=== PATIENT | male | born 1980 | race African-American/Black ===

== ENCOUNTER 2021-11-28 12:01 | Inpatient (IN) | payer SELFPAY ==
[~2021-11-28] VITALS: Ht 170.2 cm; Wt 81.6 kg
[2021-11-28] VITALS (33 sets, daily range): BP systolic 86–143; BP diastolic 59–97
[~2021-11-28 12:01] MED LIST: AMIODARONE HCL 50MG/ML 3ML VIAL IV ONE; CALCIUM CHLORIDE 1GM/10ML SYR IV ONE; EPINEPHRINE 0.1MG/ML (1:10,000) 10ML SYR ONE; SODIUM BICARBONATE 8.4% 1 MEQ/ML 50ML SYR IV ONE
[2021-11-28] MEDS ORDERED: AZITHROMYCIN 500MG/250ML 250 ML IV ONE (12:15)
[2021-11-28] MEDS ORDERED: SODIUM CHLORIDE 0.9% 1,000 ML IV ONE (12:15)
[2021-11-28] MEDS ORDERED: CEFTRIAXONE 2 G PREMIX 50 ML IV ONE (12:15)
[2021-11-28] MEDS ORDERED: AMIODARONE HCL 900 MG in DEXT 5% WATER 500 ML IV PRN (12:15)
[2021-11-28] MEDS ORDERED: CALCIUM CHLORIDE 1GM/10ML SYR IV ONE (12:30)
[2021-11-28] MEDS ORDERED: SODIUM BICARBONATE 8.4% 1 MEQ/ML 50ML SYR IV ONE (12:30)
[2021-11-28] MEDS ORDERED: EPINEPHRINE 0.1MG/ML (1:10,000) 10ML SYR IV ONE ×2 (12:30)
[2021-11-28] MEDS ORDERED: AMIODARONE HCL 50MG/ML 3ML VIAL IV ONE (12:30)
[2021-11-28] MEDS ORDERED: ATROPINE SULFATE 1MG/10ML SYR IV ONE (12:30)
[2021-11-28] MEDS ORDERED: FENTANYL CITRATE 2,500 MCG in SODIUM CHLORIDE 0.9% 200 ML IV PRN (12:30)
[2021-11-28] MEDS ORDERED: MIDAZOLAM 100MG/100ML PREMIX IV PRN (12:30)
[2021-11-28] MEDS ORDERED: NALOXONE HCL 0.4 MG/ML 1ML VIAL IV ONE (12:30)
[2021-11-28] MEDS ORDERED: FENTANYL CITRATE/PF 1,000 MCG in SODIUM CHLORIDE 0.9% 80 ML IV PRN (12:45)
[2021-11-28] MEDS ORDERED: DEXT 5%/0.45% NACL 1000ML 1,000 ML IV SCH (12:45)
[2021-11-28] MEDS ORDERED: BUSPIRONE HCL 10MG TABLET NG PRN (12:45)
[2021-11-28] MEDS ORDERED: NOREPINEPHRINE 8 MG in DEXT 5% WATER 242 ML IV PRN ×2 (12:45→13:00)
[2021-11-28 12:54] LABS: BG BASE EXCESS -11.6 mmol/L (-2.0-2.0); BG CARBOXYHEMOGLOBIN 0.6 % (0.5-1.5); BG DEOXYHEMOGLOBIN 1.6 % (0.0-5.0); BG FRACTION INSPIRED OXYGEN 100; BG HCO3 ACT 18.4 mmol/L (22.0-26.0); BG METHEMOGLOBIN 0.1 % (0.0-1.5); BG OXYGEN SATURATION 98.4 % (92.0-98.5); BG OXYHEMOGLOBIN 97.7 % (94.0-97.0); BG PCO2 60.4 mmHg (35.0-45.0); BG PH 7.102 (7.350-7.450); BG PO2 381.9 mmHg (75.0-100.0); BG SAMPLE SITE LEFT RADIAL; BG TOTAL HEMOGLOBIN 12.9 g/dL (12.0-18.0); BG VENT MODE VENT - AC
[2021-11-28 12:55] LABS: CHLORIDE 105 mEq/L (98-107)
[2021-11-28 13:00] LABS: AMYLASE 76 IU/L (25-115); ETHANOL BLOOD < 10 mg/dL
[2021-11-28] MEDS ORDERED: PHENYLEPHRINE 50 MG in DEXT 5% WATER 245 ML IV PRN (13:00)
[2021-11-28] MEDS ORDERED: NOREPINEPHRINE 8MG/250ML PMX 250 ML IV PRN ×2 (13:00→13:30)
[2021-11-28 13:02] LABS: BASOPHILS % 0.5 % (0.0-2.0); EOSINOPHILS % 1.3 % (0.0-5.0); HEMATOCRIT. 40.8 % (42.0-52.0); HEMOGLOBIN. 12.7 g/dL (14.0-18.0); LYMPHOCYTES % 45.7 % (20.0-50.0); MEAN CORPUSCULAR HEMOGLOBIN 26.9 pg (28.0-32.0); MEAN CORPUSCULAR VOLUME 86.3 fL (80.0-94.0); MEAN PLATELET VOLUME 7.7 fl (7.4-10.4); MONOCYTES % 2.8 % (2.0-8.0); NEUTROPHILS % 49.7 % (40.0-76.0); PLATELET 440 x1000/uL (130-400); RED BLOOD CELL COUNT 4.72 mill/uL (4.7-6.1); RED CELL DISTRIBUTION WIDTH 14.1 % (11.6-14.6)
[2021-11-28 13:03] LABS: LDL CHOLESTEROL 78 mg/dL (5-100)
[2021-11-28 13:04] LABS: HDL CHOLESTEROL 48 mg/dL (40-59)
[2021-11-28] MEDS: FENTANYL CITRATE 2,500 MCG in SODIUM CHLORIDE 0.9% 200 ML IV PRN ×2 (13:04→21:56)
[2021-11-28] MEDS ORDERED: PIPERACILLIN/TAZ 3.375G PREMIX 50 ML IV NR (13:04)
[2021-11-28 13:11] LABS: *AMPHETAMINES SCREEN URINE PRESUMTIVE POSITIVE (NEGATIVE); *BARBITURATES SCREEN URINE NEGATIVE (NEGATIVE); *BENZODIAZEPINES SCREEN URINE NEGATIVE (NEGATIVE); *COCAINE SCREEN URINE NEGATIVE (NEGATIVE); METHADONE URINE SCREEN NEGATIVE (NEGATIVE); OPIATES URINE SCREEN NEGATIVE (NEGATIVE); PHENCYCLIDINE URINE SCREEN NEGATIVE (NEGATIVE)
[2021-11-28 13:13] LABS: CANNABINOID URINE SCREEN PRESUMTIVE POSITIVE (NEGATIVE)
[2021-11-28 13:26] LABS: CLARITY URINE CLOUDY (CLEAR); COLOR URINE YELLOW (YELLOW); KETONES URINE NEGATIVE (NEGATIVE); LEUKOCYTE ESTERASE URINE NEGATIVE (NEGATIVE); NITRITE URINE NEGATIVE (NEGATIVE); OCCULT BLOOD URINE TRACE (NEGATIVE); PH URINE 6.5 (4.5-8.0); PROTEIN URINE 2+ (NEGATIVE); SPECIFIC GRAVITY URINE 1.025 (1.005-1.030)
[2021-11-28] MEDS ORDERED: PIPERACILLIN/TAZOBACTAM 3.375 G in DEXTROSE 5% WATER 50 ML IV SCH ×2 (13:45→22:00)
[2021-11-28] MEDS ORDERED: ONDANSETRON HCL 4MG/2ML INJ IV PRN (13:45)
[2021-11-28 13:54] LABS: PARTIAL THROMBOPLASTIN TIME 22.8 sec (23.4-31.0); PROTHROMBIN TIME 10.5 sec (9.6-11.0)
[2021-11-28] MEDS ORDERED: DEXTROSE 50% WATER 50ML SYRINGE IV PRN (14:45)
[2021-11-28] MEDS: ENOXAPARIN 40MG/0.4ML SYR SUBCUT SCH (15:47)
[2021-11-28] MEDS: PANTOPRAZOLE SODIUM 40 MG/VIAL IV SCH (15:47)
[2021-11-28] MEDS: DEXT 5%/0.45% NACL 1000ML 1,000 ML IV SCH (15:48)
[2021-11-28] MEDS: BLOOD SUGAR DIAGNOSTIC STRIP TEST SCH ×8 (16:00→23:00)
[2021-11-28] MEDS ORDERED: INSULIN REGULAR (DRIP) 100 UNITS in SODIUM CHLORIDE 0.9% 100 ML IV SCH (16:00)
[2021-11-28] MEDS ORDERED: FENTANYL CITRATE/PF 2,500 MCG in SODIUM CHLORIDE 0.9% 200 ML IV PRN (16:15)
[2021-11-28] MEDS ORDERED: NOREPINEPHRINE 32 MG in DEXT 5% WATER 218 ML IV PRN (16:15)
[2021-11-28] MEDS: DEXTROSE 50% WATER 50ML SYRINGE IV PRN (16:29)
[2021-11-28 16:47] LABS: BG BASE EXCESS -6.4 mmol/L (-2.0-2.0); BG CARBOXYHEMOGLOBIN 0.9 % (0.5-1.5); BG DEOXYHEMOGLOBIN 9.6 % (0.0-5.0); BG FRACTION INSPIRED OXYGEN 100; BG METHEMOGLOBIN 0.3 % (0.0-1.5); BG OXYGEN SATURATION 90.3 % (92.0-98.5); BG OXYHEMOGLOBIN 89.2 % (94.0-97.0); BG PCO2 62.8 mmHg (35.0-45.0); BG PH 7.181 (7.350-7.450); BG PO2 70.2 mmHg (75.0-100.0); BG SAMPLE SITE RIGHT RADIAL; BG TOTAL RESPIRATORY RATE 25 b/min; BG VENT MODE VENT - AC
[2021-11-28] MEDS ORDERED: IPRATROPIUM/ALBUTEROL 0.5-3(2.5)MG/3ML NEB HHN PRN (17:15)
[2021-11-28] MEDS: IPRATROPIUM/ALBUTEROL 0.5-3(2.5)MG/3ML NEB HHN SCH (20:44)
[2021-11-28 21:31] LABS: CHLORIDE 111 mEq/L (98-107)
[2021-11-28 21:36] LABS: PHOSPHORUS 5.3 mg/dL (2.5-4.9)
[2021-11-28 21:39] LABS: CREATINE KINASE 349 IU/L (39-308)
[2021-11-28] MEDS: MIDAZOLAM HCL 100 MG in DEXT 5% WATER 80 ML IV PRN (21:49)
[2021-11-28 22:39] LABS: BASOPHILS % 0.2 % (0.0-2.0); EOSINOPHILS % 0.1 % (0.0-5.0); HEMATOCRIT. 42.3 % (42.0-52.0); HEMOGLOBIN. 14.1 g/dL (14.0-18.0); LYMPHOCYTES % 9.1 % (20.0-50.0); MEAN CORPUSCULAR HEMOGLOBIN 27.5 pg (28.0-32.0); MEAN CORPUSCULAR VOLUME 82.7 fL (80.0-94.0); MEAN PLATELET VOLUME 7.1 fl (7.4-10.4); MONOCYTES % 2.4 % (2.0-8.0); NEUTROPHILS % 88.2 % (40.0-76.0); PLATELET 298 x1000/uL (130-400); RED BLOOD CELL COUNT 5.12 mill/uL (4.7-6.1); RED CELL DISTRIBUTION WIDTH 13.8 % (11.6-14.6)
[2021-11-28 22:56] LABS: CREATINE KINASE MB FRACTION 12.2 ng/mL (0.5-3.6)
[2021-11-29] VITALS (97 sets, daily range): BP systolic 82–136; BP diastolic 49–80
[2021-11-29] MEDS: IPRATROPIUM/ALBUTEROL 0.5-3(2.5)MG/3ML NEB HHN SCH ×6 (00:24→20:30)
[2021-11-29] MEDS: PIPERACILLIN/TAZOBACTAM 3.375G in DEXT 5% WATER 50ML IV SCH ×4 (01:22→22:14)
[2021-11-29] MEDS: BLOOD SUGAR DIAGNOSTIC STRIP TEST SCH ×24 (01:23→23:44)
[2021-11-29] MEDS: DEXT 5%/0.45% NACL 1000ML 1,000 ML IV SCH (05:07)
[2021-11-29] MEDS: MIDAZOLAM HCL 100 MG in DEXT 5% WATER 80 ML IV PRN ×3 (05:41→17:58)
[2021-11-29] MEDS: FENTANYL CITRATE 2,500 MCG in SODIUM CHLORIDE 0.9% 200 ML IV PRN ×3 (05:44→16:05)
[2021-11-29 06:12] LABS: CHLORIDE 112 mEq/L (98-107)
[2021-11-29 06:16] LABS: PHOSPHORUS 4.9 mg/dL (2.5-4.9)
[2021-11-29 06:19] LABS: CREATINE KINASE 463 IU/L (39-308)
[2021-11-29 06:21] LABS: CREATINE KINASE MB FRACTION 22.4 ng/mL (0.5-3.6); HEMATOCRIT. 43.7 % (42.0-52.0); HEMOGLOBIN. 14.1 g/dL (14.0-18.0); MEAN CORPUSCULAR HEMOGLOBIN 26.8 pg (28.0-32.0); MEAN PLATELET VOLUME 7.5 fl (7.4-10.4); PLATELET 289 x1000/uL (130-400); RED BLOOD CELL COUNT 5.26 mill/uL (4.7-6.1); RED CELL DISTRIBUTION WIDTH 14.2 % (11.6-14.6)
[2021-11-29] MEDS ORDERED: LIDOCAINE HCL 1% 20ML VIAL (Pyxis) INJ ONE (08:49)
[2021-11-29] MEDS ORDERED: PANTOPRAZOLE SODIUM 40 MG/VIAL IV SCH (09:00)
[2021-11-29] MEDS: PANTOPRAZOLE SODIUM 40 MG/VIAL IV SCH (09:02)
[2021-11-29 09:18] LABS: BG BASE EXCESS -8.6 mmol/L (-2.0-2.0); BG CARBOXYHEMOGLOBIN 0.7 % (0.5-1.5); BG DEOXYHEMOGLOBIN 25.8 % (0.0-5.0); BG FRACTION INSPIRED OXYGEN 100; BG HCO3 ACT 21.9 mmol/L (22.0-26.0); BG METHEMOGLOBIN 0.3 % (0.0-1.5); BG OXYGEN SATURATION 73.9 % (92.0-98.5); BG OXYHEMOGLOBIN 73.2 % (94.0-97.0); BG PH 7.125 (7.350-7.450); BG PO2 46.1 mmHg (75.0-100.0); BG SAMPLE SITE RIGHT RADIAL; BG TOTAL HEMOGLOBIN 14.4 g/dL (12.0-18.0); BG VENT MODE VENT - AC/VC
[2021-11-29] MEDS: DEXT 5%/0.9% NACL 1,000 ML IV SCH ×2 (09:34→18:32)
[2021-11-29 09:36] LABS: BG BASE EXCESS -6.9 mmol/L (-2.0-2.0); BG CARBOXYHEMOGLOBIN 0.3 % (0.5-1.5); BG DEOXYHEMOGLOBIN 1.3 % (0.0-5.0); BG HCO3 ACT 21.7 mmol/L (22.0-26.0); BG METHEMOGLOBIN 0.3 % (0.0-1.5); BG OXYGEN SATURATION 98.7 % (92.0-98.5); BG OXYHEMOGLOBIN 98.1 % (94.0-97.0); BG PCO2 56.4 mmHg (35.0-45.0); BG PH 7.203 (7.350-7.450); BG PO2 363.3 mmHg (75.0-100.0); BG SAMPLE SITE RIGHT FEMORAL; BG TOTAL HEMOGLOBIN 13.7 g/dL (12.0-18.0); BG VENT MODE VENT - AC
[2021-11-29] MEDS: ENOXAPARIN 40MG/0.4ML SYR SUBCUT SCH (13:05)
[2021-11-29 14:01] LABS: PARTIAL THROMBOPLASTIN TIME 31.3 sec (23.4-31.0); PROTHROMBIN TIME 10.8 sec (9.6-11.0)
[2021-11-29 14:30] LABS: PLATELET ESTIMATE NORMAL
[2021-11-29 14:34] LABS: CHLORIDE 111 mEq/L (98-107)
[2021-11-29 14:39] LABS: PHOSPHORUS 4.5 mg/dL (2.5-4.9)
[2021-11-29 14:48] LABS: CREATINE KINASE MB FRACTION 28.8 ng/mL (0.5-3.6)
[2021-11-29 15:16] LABS: BG CARBOXYHEMOGLOBIN 0.3 % (0.5-1.5); BG DEOXYHEMOGLOBIN 2.4 % (0.0-5.0); BG HCO3 ACT 22.5 mmol/L (22.0-26.0); BG METHEMOGLOBIN 0.3 % (0.0-1.5); BG OXYGEN SATURATION 97.6 % (92.0-98.5); BG PCO2 57.5 mmHg (35.0-45.0); BG PH 7.211 (7.350-7.450); BG PO2 134.3 mmHg (75.0-100.0); BG SAMPLE SITE RIGHT RADIAL; BG TOTAL HEMOGLOBIN 13.5 g/dL (12.0-18.0); BG VENT MODE VENT - AC
[2021-11-29] MEDS ORDERED: NOREPINEPHRINE 8MG/250ML PMX 250 ML IV PRN (19:45)
[2021-11-29] MEDS ORDERED: NOREPINEPHRINE 8 MG in DEXT 5% WATER 242 ML IV PRN (20:00)
[2021-11-29] MEDS ORDERED: NOREPINEPHRINE 8 MG in DEXTROSE 5% WATER 250 ML IV PRN (20:15)
[2021-11-29 21:49] LABS: BASOPHILS % 0.2 % (0.0-2.0); EOSINOPHILS % 0.2 % (0.0-5.0); HEMATOCRIT. 40.7 % (42.0-52.0); HEMOGLOBIN. 13.3 g/dL (14.0-18.0); LYMPHOCYTES % 10.4 % (20.0-50.0); MEAN CORPUSCULAR VOLUME 82.5 fL (80.0-94.0); MEAN PLATELET VOLUME 7.6 fl (7.4-10.4); MONOCYTES % 4.1 % (2.0-8.0); NEUTROPHILS % 85.1 % (40.0-76.0); PLATELET 270 x1000/uL (130-400); RED BLOOD CELL COUNT 4.93 mill/uL (4.7-6.1); RED CELL DISTRIBUTION WIDTH 14.1 % (11.6-14.6)
[2021-11-29 21:57] LABS: INR 1.1; PROTHROMBIN TIME 11.4 sec (9.6-11.0)
[2021-11-29 22:06] LABS: CHLORIDE 109 mEq/L (98-107)
[2021-11-30] VITALS (95 sets, daily range): BP systolic 89–143; BP diastolic 49–84
[2021-11-30] MEDS: BLOOD SUGAR DIAGNOSTIC STRIP TEST SCH ×18 (00:07→20:00)
[2021-11-30] MEDS: FENTANYL CITRATE 2,500 MCG in SODIUM CHLORIDE 0.9% 200 ML IV PRN ×3 (00:09→18:48)
[2021-11-30] MEDS: IPRATROPIUM/ALBUTEROL 0.5-3(2.5)MG/3ML NEB HHN SCH ×6 (00:48→20:14)
[2021-11-30 01:10] LABS: BASOPHILS % 0.3 % (0.0-2.0); EOSINOPHILS % 0.4 % (0.0-5.0); HEMATOCRIT. 40.3 % (42.0-52.0); HEMOGLOBIN. 13.1 g/dL (14.0-18.0); LYMPHOCYTES % 7.3 % (20.0-50.0); MEAN CORPUSCULAR VOLUME 82.8 fL (80.0-94.0); MEAN PLATELET VOLUME 7.7 fl (7.4-10.4); MONOCYTES % 4.5 % (2.0-8.0); NEUTROPHILS % 87.5 % (40.0-76.0); PLATELET 248 x1000/uL (130-400); RED BLOOD CELL COUNT 4.87 mill/uL (4.7-6.1); RED CELL DISTRIBUTION WIDTH 14.1 % (11.6-14.6)
[2021-11-30 01:36] LABS: CHLORIDE 112 mEq/L (98-107)
[2021-11-30 02:07] LABS: INR 1.1; PARTIAL THROMBOPLASTIN TIME 35.2 sec (23.4-31.0); PROTHROMBIN TIME 11.7 sec (9.6-11.0)
[2021-11-30] MEDS: MIDAZOLAM HCL 100 MG in DEXT 5% WATER 80 ML IV PRN (03:07)
[2021-11-30] MEDS: DEXT 5%/0.9% NACL 1,000 ML IV SCH ×2 (05:26→15:19)
[2021-11-30 06:00] LABS: BASOPHILS % 0.3 % (0.0-2.0); EOSINOPHILS % 0.5 % (0.0-5.0); HEMATOCRIT. 39.8 % (42.0-52.0); HEMOGLOBIN. 13.2 g/dL (14.0-18.0); LYMPHOCYTES % 7.6 % (20.0-50.0); MEAN CORPUSCULAR HEMOGLOBIN 27.3 pg (28.0-32.0); MEAN CORPUSCULAR VOLUME 82.2 fL (80.0-94.0); MEAN PLATELET VOLUME 7.8 fl (7.4-10.4); MONOCYTES % 3.8 % (2.0-8.0); NEUTROPHILS % 87.8 % (40.0-76.0); PLATELET 233 x1000/uL (130-400); RED BLOOD CELL COUNT 4.84 mill/uL (4.7-6.1); RED CELL DISTRIBUTION WIDTH 13.9 % (11.6-14.6)
[2021-11-30 06:09] LABS: CHLORIDE 111 mEq/L (98-107)
[2021-11-30 06:10] LABS: INR 1.1; PARTIAL THROMBOPLASTIN TIME 36.6 sec (23.4-31.0); PROTHROMBIN TIME 11.9 sec (9.6-11.0)
[2021-11-30] MEDS: PIPERACILLIN/TAZOBACTAM 3.375G in DEXT 5% WATER 50ML IV SCH ×3 (06:16→22:35)
[2021-11-30] MEDS: PANTOPRAZOLE SODIUM 40 MG/VIAL IV SCH (08:55)
[2021-11-30] MEDS: MIDAZOLAM HCL 100 MG in SODIUM CHLORIDE 0.9% 100 ML IV PRN ×2 (08:57→18:49)
[2021-11-30 09:02] LABS: BG BASE EXCESS -2.5 mmol/L (-2.0-2.0); BG CARBOXYHEMOGLOBIN 0.6 % (0.5-1.5); BG DEOXYHEMOGLOBIN 6.6 % (0.0-5.0); BG FRACTION INSPIRED OXYGEN 40; BG HCO3 ACT 25.2 mmol/L (22.0-26.0); BG METHEMOGLOBIN 0.3 % (0.0-1.5); BG OXYGEN SATURATION 93.3 % (92.0-98.5); BG OXYHEMOGLOBIN 92.5 % (94.0-97.0); BG PCO2 56.7 mmHg (35.0-45.0); BG PH 7.266 (7.350-7.450); BG PO2 72.1 mmHg (75.0-100.0); BG SAMPLE SITE RIGHT RADIAL; BG TOTAL RESPIRATORY RATE 34 b/min; BG VENT MODE VENT - AC
[2021-11-30 09:50] LABS: BASOPHILS % 0.5 % (0.0-2.0); EOSINOPHILS % 1.3 % (0.0-5.0); HEMATOCRIT. 37.6 % (42.0-52.0); HEMOGLOBIN. 12.5 g/dL (14.0-18.0); LYMPHOCYTES % 7.1 % (20.0-50.0); MEAN CORPUSCULAR HEMOGLOBIN 27.6 pg (28.0-32.0); MEAN CORPUSCULAR VOLUME 82.7 fL (80.0-94.0); MEAN PLATELET VOLUME 7.6 fl (7.4-10.4); MONOCYTES % 3.9 % (2.0-8.0); NEUTROPHILS % 87.2 % (40.0-76.0); PLATELET 219 x1000/uL (130-400); RED BLOOD CELL COUNT 4.55 mill/uL (4.7-6.1); RED CELL DISTRIBUTION WIDTH 14.3 % (11.6-14.6)
[2021-11-30 09:57] LABS: CHLORIDE 112 mEq/L (98-107)
[2021-11-30 10:02] LABS: INR 1.2; PARTIAL THROMBOPLASTIN TIME 36.2 sec (23.4-31.0); PROTHROMBIN TIME 12.4 sec (9.6-11.0)
[2021-11-30] MEDS: ENOXAPARIN 40MG/0.4ML SYR SUBCUT SCH (13:03)
[2021-11-30 13:14] LABS: CHLORIDE 111 mEq/L (98-107)
[2021-11-30 13:17] LABS: INR 1.1; PARTIAL THROMBOPLASTIN TIME 36.9 sec (23.4-31.0); PROTHROMBIN TIME 12.2 sec (9.6-11.0)
[2021-11-30 18:59] LABS: HEMATOCRIT. 38.5 % (42.0-52.0); HEMOGLOBIN. 12.4 g/dL (14.0-18.0); MEAN CORPUSCULAR HEMOGLOBIN 26.6 pg (28.0-32.0); MEAN CORPUSCULAR VOLUME 82.5 fL (80.0-94.0); MEAN PLATELET VOLUME 7.8 fl (7.4-10.4); PLATELET 249 x1000/uL (130-400); RED BLOOD CELL COUNT 4.67 mill/uL (4.7-6.1); RED CELL DISTRIBUTION WIDTH 14.4 % (11.6-14.6)
[2021-11-30 19:04] LABS: CHLORIDE 110 mEq/L (98-107)
[2021-11-30 19:12] LABS: PHOSPHORUS 4.4 mg/dL (2.5-4.9)
[2021-11-30 19:14] LABS: CREATINE KINASE 915 IU/L (39-308)
[2021-11-30 19:22] LABS: INR 1.1; PARTIAL THROMBOPLASTIN TIME 37.3 sec (23.4-31.0); PROTHROMBIN TIME 11.9 sec (9.6-11.0)
[2021-11-30 20:33] LABS: PLATELET ESTIMATE NORMAL
[2021-12-01] VITALS (95 sets, daily range): BP systolic 96–142; BP diastolic 48–75
[2021-12-01] MEDS: IPRATROPIUM/ALBUTEROL 0.5-3(2.5)MG/3ML NEB HHN SCH ×6 (00:05→20:15)
[2021-12-01] MEDS: DEXT 5%/0.9% NACL 1,000 ML IV SCH ×3 (00:29→21:14)
[2021-12-01] MEDS: BLOOD SUGAR DIAGNOSTIC STRIP TEST SCH ×6 (00:30→20:00)
[2021-12-01 00:47] LABS: HEMATOCRIT. 35.2 % (42.0-52.0); HEMOGLOBIN. 11.6 g/dL (14.0-18.0); MEAN CORPUSCULAR HEMOGLOBIN 27.1 pg (28.0-32.0); MEAN CORPUSCULAR VOLUME 81.9 fL (80.0-94.0); MEAN PLATELET VOLUME 7.8 fl (7.4-10.4); PLATELET 228 x1000/uL (130-400); RED CELL DISTRIBUTION WIDTH 13.8 % (11.6-14.6)
[2021-12-01 01:01] LABS: CHLORIDE 114 mEq/L (98-107)
[2021-12-01 01:08] LABS: PHOSPHORUS 3.2 mg/dL (2.5-4.9)
[2021-12-01 01:11] LABS: CREATINE KINASE 805 IU/L (39-308)
[2021-12-01 01:29] LABS: INR 1.1; PROTHROMBIN TIME 11.5 sec (9.6-11.0)
[2021-12-01 02:08] LABS: PLATELET ESTIMATE NORMAL
[2021-12-01] MEDS: MIDAZOLAM HCL 100 MG in SODIUM CHLORIDE 0.9% 100 ML IV PRN (02:10)
[2021-12-01] MEDS: FENTANYL CITRATE 2,500 MCG in SODIUM CHLORIDE 0.9% 200 ML IV PRN (02:12)
[2021-12-01 06:00] LABS: HEMATOCRIT. 33.3 % (42.0-52.0); MEAN CORPUSCULAR HEMOGLOBIN 27.1 pg (28.0-32.0); MEAN CORPUSCULAR VOLUME 81.8 fL (80.0-94.0); MEAN PLATELET VOLUME 7.9 fl (7.4-10.4); PLATELET 215 x1000/uL (130-400); RED BLOOD CELL COUNT 4.07 mill/uL (4.7-6.1)
[2021-12-01 06:05] LABS: CHLORIDE 113 mEq/L (98-107)
[2021-12-01] MEDS: PIPERACILLIN/TAZOBACTAM 3.375G in DEXT 5% WATER 50ML IV SCH ×3 (06:14→21:14)
[2021-12-01 06:17] LABS: CREATINE KINASE 675 IU/L (39-308)
[2021-12-01 06:20] LABS: PHOSPHORUS 2.8 mg/dL (2.5-4.9)
[2021-12-01 06:32] LABS: INR 1.1; PROTHROMBIN TIME 11.3 sec (9.6-11.0)
[2021-12-01] MEDS: PANTOPRAZOLE SODIUM 40 MG/VIAL IV SCH (08:40)
[2021-12-01 08:54] LABS: BG BASE EXCESS 1.8 mmol/L (-2.0-2.0); BG CARBOXYHEMOGLOBIN 0.6 % (0.5-1.5); BG DEOXYHEMOGLOBIN 6.4 % (0.0-5.0); BG FRACTION INSPIRED OXYGEN 40; BG HCO3 ACT 28.1 mmol/L (22.0-26.0); BG METHEMOGLOBIN 0.3 % (0.0-1.5); BG OXYGEN SATURATION 93.5 % (92.0-98.5); BG OXYHEMOGLOBIN 92.7 % (94.0-97.0); BG PH 7.351 (7.350-7.450); BG PO2 71.7 mmHg (75.0-100.0); BG SAMPLE SITE RIGHT RADIAL; BG TOTAL HEMOGLOBIN 11.8 g/dL (12.0-18.0); BG VENT MODE VENT - AC
[2021-12-01 09:20] LABS: PLATELET ESTIMATE NORMAL
[2021-12-01] MEDS: ACETAMINOPHEN 650MG SUPP PR PRN ×2 (11:20→19:34)
[2021-12-01 12:52] LABS: BASOPHILS % 0.6 % (0.0-2.0); EOSINOPHILS % 1.3 % (0.0-5.0); HEMATOCRIT. 33.1 % (42.0-52.0); HEMOGLOBIN. 10.9 g/dL (14.0-18.0); LYMPHOCYTES % 4.8 % (20.0-50.0); MEAN CORPUSCULAR HEMOGLOBIN 26.6 pg (28.0-32.0); MEAN CORPUSCULAR VOLUME 80.9 fL (80.0-94.0); MEAN PLATELET VOLUME 7.8 fl (7.4-10.4); MONOCYTES % 3.2 % (2.0-8.0); NEUTROPHILS % 90.1 % (40.0-76.0); PLATELET 228 x1000/uL (130-400); RED BLOOD CELL COUNT 4.09 mill/uL (4.7-6.1)
[2021-12-01 13:00] LABS: CHLORIDE 113 mEq/L (98-107)
[2021-12-01 13:03] LABS: PARTIAL THROMBOPLASTIN TIME 35.9 sec (23.4-31.0); PROTHROMBIN TIME 10.9 sec (9.6-11.0)
[2021-12-01 13:08] LABS: PHOSPHORUS 2.2 mg/dL (2.5-4.9)
[2021-12-01 13:21] LABS: CREATINE KINASE 541 IU/L (39-308)
[2021-12-01] MEDS: ENOXAPARIN 40MG/0.4ML SYR SUBCUT SCH (13:46)
[2021-12-01 15:28] LABS: CLARITY URINE CLOUDY (CLEAR); COLOR URINE YELLOW (YELLOW); KETONES URINE NEGATIVE (NEGATIVE); LEUKOCYTE ESTERASE URINE NEGATIVE (NEGATIVE); NITRITE URINE NEGATIVE (NEGATIVE); OCCULT BLOOD URINE 1+ (NEGATIVE); PH URINE 5.5 (4.5-8.0); PROTEIN URINE TRACE (NEGATIVE); UROBILINOGEN URINE 0.2 E.U./dL (0.2-1.0)
[2021-12-01 20:21] LABS: BASOPHILS % 0.6 % (0.0-2.0); EOSINOPHILS % 1.8 % (0.0-5.0); HEMATOCRIT. 33.6 % (42.0-52.0); HEMOGLOBIN. 11.1 g/dL (14.0-18.0); LYMPHOCYTES % 6.8 % (20.0-50.0); MEAN CORPUSCULAR HEMOGLOBIN 26.8 pg (28.0-32.0); MEAN CORPUSCULAR VOLUME 81.3 fL (80.0-94.0); MEAN PLATELET VOLUME 7.6 fl (7.4-10.4); MONOCYTES % 3.9 % (2.0-8.0); NEUTROPHILS % 86.9 % (40.0-76.0); PLATELET 219 x1000/uL (130-400); RED BLOOD CELL COUNT 4.14 mill/uL (4.7-6.1)
[2021-12-01 20:36] LABS: CHLORIDE 114 mEq/L (98-107)
[2021-12-01 20:37] LABS: PARTIAL THROMBOPLASTIN TIME 38.8 sec (23.4-31.0); PROTHROMBIN TIME 10.9 sec (9.6-11.0)
[2021-12-01 20:41] LABS: PHOSPHORUS 2.8 mg/dL (2.5-4.9)
[2021-12-01 20:44] LABS: CREATINE KINASE 496 IU/L (39-308)
[2021-12-02] VITALS (94 sets, daily range): BP systolic 101–143; BP diastolic 48–74
[2021-12-02] MEDS: IPRATROPIUM/ALBUTEROL 0.5-3(2.5)MG/3ML NEB HHN SCH ×6 (00:25→20:09)
[2021-12-02 01:09] LABS: HEMATOCRIT. 31.6 % (42.0-52.0); HEMOGLOBIN. 10.4 g/dL (14.0-18.0); MEAN CORPUSCULAR HEMOGLOBIN 27.1 pg (28.0-32.0); MEAN CORPUSCULAR VOLUME 82.3 fL (80.0-94.0); MEAN PLATELET VOLUME 7.7 fl (7.4-10.4); PLATELET 211 x1000/uL (130-400); RED BLOOD CELL COUNT 3.84 mill/uL (4.7-6.1); RED CELL DISTRIBUTION WIDTH 14.4 % (11.6-14.6)
[2021-12-02 01:13] LABS: CHLORIDE 114 mEq/L (98-107)
[2021-12-02 01:22] LABS: CREATINE KINASE 404 IU/L (39-308)
[2021-12-02 01:51] LABS: PARTIAL THROMBOPLASTIN TIME 38.3 sec (23.4-31.0); PROTHROMBIN TIME 10.8 sec (9.6-11.0)
[2021-12-02] MEDS: FENTANYL CITRATE 2,500 MCG in SODIUM CHLORIDE 0.9% 200 ML IV PRN (02:10)
[2021-12-02] MEDS: MIDAZOLAM HCL 100 MG in SODIUM CHLORIDE 0.9% 100 ML IV PRN (03:18)
[2021-12-02] MEDS: BLOOD SUGAR DIAGNOSTIC STRIP TEST SCH ×6 (04:21→20:00)
[2021-12-02] MEDS: DEXTROSE 50% WATER 50ML SYRINGE IV PRN ×4 (04:53→15:43)
[2021-12-02] MEDS: MEROPENEM 1,000 MG in SODIUM CHLORIDE 0.9% 100 ML IV SCH ×3 (06:18→22:47)
[2021-12-02] MEDS: DEXT 5%/0.9% NACL 1,000 ML IV SCH ×2 (06:18→16:26)
[2021-12-02 06:42] LABS: BASOPHILS % 0.5 % (0.0-2.0); EOSINOPHILS % 2.2 % (0.0-5.0); HEMOGLOBIN. 9.9 g/dL (14.0-18.0); LYMPHOCYTES % 7.7 % (20.0-50.0); MEAN CORPUSCULAR HEMOGLOBIN 27.2 pg (28.0-32.0); MEAN CORPUSCULAR VOLUME 82.4 fL (80.0-94.0); MEAN PLATELET VOLUME 7.8 fl (7.4-10.4); MONOCYTES % 5.1 % (2.0-8.0); NEUTROPHILS % 84.5 % (40.0-76.0); PLATELET 184 x1000/uL (130-400); RED BLOOD CELL COUNT 3.64 mill/uL (4.7-6.1); RED CELL DISTRIBUTION WIDTH 14.2 % (11.6-14.6)
[2021-12-02 06:53] LABS: CHLORIDE 114 mEq/L (98-107)
[2021-12-02 07:01] LABS: PARTIAL THROMBOPLASTIN TIME 37.6 sec (23.4-31.0); PROTHROMBIN TIME 10.8 sec (9.6-11.0)
[2021-12-02 07:03] LABS: CREATINE KINASE 306 IU/L (39-308)
[2021-12-02 07:08] LABS: PHOSPHORUS 3.1 mg/dL (2.5-4.9)
[2021-12-02] MEDS: PANTOPRAZOLE SODIUM 40 MG/VIAL IV SCH (08:06)
[2021-12-02 09:11] LABS: PLATELET ESTIMATE NORMAL
[2021-12-02 09:25] LABS: BG BASE EXCESS 1.6 mmol/L (-2.0-2.0); BG CARBOXYHEMOGLOBIN 0.3 % (0.5-1.5); BG DEOXYHEMOGLOBIN 2.6 % (0.0-5.0); BG FRACTION INSPIRED OXYGEN 45; BG HCO3 ACT 26.9 mmol/L (22.0-26.0); BG METHEMOGLOBIN 0.3 % (0.0-1.5); BG OXYGEN SATURATION 97.4 % (92.0-98.5); BG OXYHEMOGLOBIN 96.8 % (94.0-97.0); BG PCO2 45.5 mmHg (35.0-45.0); BG PO2 124.6 mmHg (75.0-100.0); BG SAMPLE SITE RIGHT RADIAL; BG VENT MODE VENT - AC
[2021-12-02 13:27] LABS: BASOPHILS % 0.4 % (0.0-2.0); EOSINOPHILS % 2.5 % (0.0-5.0); HEMATOCRIT. 30.8 % (42.0-52.0); LYMPHOCYTES % 8.9 % (20.0-50.0); MEAN CORPUSCULAR HEMOGLOBIN 26.8 pg (28.0-32.0); MEAN CORPUSCULAR VOLUME 82.3 fL (80.0-94.0); MEAN PLATELET VOLUME 7.8 fl (7.4-10.4); MONOCYTES % 6.1 % (2.0-8.0); NEUTROPHILS % 82.1 % (40.0-76.0); PLATELET 194 x1000/uL (130-400); RED BLOOD CELL COUNT 3.74 mill/uL (4.7-6.1); RED CELL DISTRIBUTION WIDTH 14.2 % (11.6-14.6)
[2021-12-02 13:29] LABS: CHLORIDE 115 mEq/L (98-107)
[2021-12-02 13:30] LABS: PROTHROMBIN TIME 10.8 sec (9.6-11.0)
[2021-12-02 13:37] LABS: PHOSPHORUS 2.8 mg/dL (2.5-4.9)
[2021-12-02] MEDS: ENOXAPARIN 40MG/0.4ML SYR SUBCUT SCH (13:37)
[2021-12-02 13:39] LABS: CREATINE KINASE 207 IU/L (39-308)
[2021-12-02] MEDS: FENTANYL CITRATE/PF 2,500 MCG in SODIUM CHLORIDE 0.9% 200 ML IV PRN (22:52)
[2021-12-03] VITALS (85 sets, daily range): BP systolic 121–144; BP diastolic 62–88
[2021-12-03] MEDS: IPRATROPIUM/ALBUTEROL 0.5-3(2.5)MG/3ML NEB HHN SCH ×6 (00:25→20:45)
[2021-12-03] MEDS: DEXT 5%/0.9% NACL 1,000 ML IV SCH ×3 (02:37→23:48)
[2021-12-03] MEDS: BLOOD SUGAR DIAGNOSTIC STRIP TEST SCH ×6 (04:00→20:33)
[2021-12-03] MEDS: MEROPENEM 1,000 MG in SODIUM CHLORIDE 0.9% 100 ML IV SCH ×3 (05:54→21:56)
[2021-12-03 06:05] LABS: BASOPHILS % 0.3 % (0.0-2.0); HEMATOCRIT. 30.5 % (42.0-52.0); HEMOGLOBIN. 9.8 g/dL (14.0-18.0); LYMPHOCYTES % 10.4 % (20.0-50.0); MEAN CORPUSCULAR HEMOGLOBIN 26.3 pg (28.0-32.0); MEAN CORPUSCULAR VOLUME 82.1 fL (80.0-94.0); MEAN PLATELET VOLUME 7.6 fl (7.4-10.4); NEUTROPHILS % 77.3 % (40.0-76.0); PLATELET 195 x1000/uL (130-400); RED BLOOD CELL COUNT 3.71 mill/uL (4.7-6.1); RED CELL DISTRIBUTION WIDTH 14.3 % (11.6-14.6)
[2021-12-03 06:13] LABS: CHLORIDE 113 mEq/L (98-107)
[2021-12-03 07:24] LABS: BG CARBOXYHEMOGLOBIN 0.4 % (0.5-1.5); BG DEOXYHEMOGLOBIN 7.3 % (0.0-5.0); BG HCO3 ACT 28.7 mmol/L (22.0-26.0); BG METHEMOGLOBIN 0.3 % (0.0-1.5); BG OXYGEN SATURATION 92.6 % (92.0-98.5); BG PCO2 43.6 mmHg (35.0-45.0); BG PH 7.436 (7.350-7.450); BG PO2 65.6 mmHg (75.0-100.0); BG SAMPLE SITE RIGHT RADIAL; BG TOTAL HEMOGLOBIN 11.3 g/dL (12.0-18.0); BG VENT MODE VENT - AC
[2021-12-03] MEDS: PANTOPRAZOLE SODIUM 40 MG/VIAL IV SCH (09:19)
[2021-12-03] MEDS: ENOXAPARIN 40MG/0.4ML SYR SUBCUT SCH (14:44)
[2021-12-03] MEDS: FENTANYL CITRATE/PF 2,500 MCG in SODIUM CHLORIDE 0.9% 200 ML IV PRN ×2 (15:11→21:57)
[2021-12-03 18:42] LABS: FOLIC ACID (FOLATE) SERUM 5.2 ng/mL (>5.38)
[2021-12-04] VITALS (59 sets, daily range): BP systolic 94–163; BP diastolic 52–92
[2021-12-04] MEDS: IPRATROPIUM/ALBUTEROL 0.5-3(2.5)MG/3ML NEB HHN SCH ×6 (00:59→20:43)
[2021-12-04 02:32] LABS: CHLORIDE 114 mEq/L (98-107)
[2021-12-04] MEDS: BLOOD SUGAR DIAGNOSTIC STRIP TEST SCH ×6 (04:48→20:00)
[2021-12-04] MEDS: MEROPENEM 1,000 MG in SODIUM CHLORIDE 0.9% 100 ML IV SCH ×3 (06:29→22:00)
[2021-12-04] MEDS: FENTANYL CITRATE/PF 2,500 MCG in SODIUM CHLORIDE 0.9% 200 ML IV PRN (06:39)
[2021-12-04 07:08] LABS: BASOPHILS % 0.4 % (0.0-2.0); EOSINOPHILS % 4.3 % (0.0-5.0); HEMATOCRIT. 26.9 % (42.0-52.0); HEMOGLOBIN. 9.3 g/dL (14.0-18.0); LYMPHOCYTES % 15.6 % (20.0-50.0); MEAN CORPUSCULAR HEMOGLOBIN 28.6 pg (28.0-32.0); MEAN CORPUSCULAR VOLUME 82.5 fL (80.0-94.0); MEAN PLATELET VOLUME 7.7 fl (7.4-10.4); MONOCYTES % 10.1 % (2.0-8.0); NEUTROPHILS % 69.6 % (40.0-76.0); PLATELET 153 x1000/uL (130-400); RED BLOOD CELL COUNT 3.26 mill/uL (4.7-6.1); RED CELL DISTRIBUTION WIDTH 13.9 % (11.6-14.6)
[2021-12-04] MEDS: DEXT 5%/0.9% NACL 1,000 ML IV SCH ×2 (07:11→19:51)
[2021-12-04] MEDS: PANTOPRAZOLE SODIUM 40 MG/VIAL IV SCH ×2 (09:13→09:19)
[2021-12-04 09:40] LABS: BG BASE EXCESS 2.3 mmol/L (-2.0-2.0); BG CARBOXYHEMOGLOBIN 0.4 % (0.5-1.5); BG DEOXYHEMOGLOBIN 3.3 % (0.0-5.0); BG FRACTION INSPIRED OXYGEN 35; BG HCO3 ACT 25.3 mmol/L (22.0-26.0); BG METHEMOGLOBIN 0.3 % (0.0-1.5); BG OXYGEN SATURATION 96.7 % (92.0-98.5); BG PCO2 33.1 mmHg (35.0-45.0); BG PH 7.501 (7.350-7.450); BG PO2 96.2 mmHg (75.0-100.0); BG SAMPLE SITE RIGHT RADIAL; BG TOTAL HEMOGLOBIN 9.1 g/dL (12.0-18.0); BG TOTAL RESPIRATORY RATE 34 b/min; BG VENT MODE VENT - AC
[2021-12-04] MEDS ORDERED: POTASSIUM CHLORIDE INJ 40 MEQ in DEXT 5% WATER 500 ML IV ONE (12:45)
[2021-12-04] MEDS: ENOXAPARIN 40MG/0.4ML SYR SUBCUT SCH (14:21)
[2021-12-04] MEDS: KCL 20MEQ/100ML PREMIX 100 ML IV SCH ×2 (14:21→16:00)
[2021-12-04] MEDS: PROPOFOL 10MG/ML 100ML 100 ML IV PRN ×2 (15:44→22:32)
[2021-12-05] VITALS (95 sets, daily range): BP systolic 104–167; BP diastolic 60–106
[2021-12-05] MEDS: IPRATROPIUM/ALBUTEROL 0.5-3(2.5)MG/3ML NEB HHN SCH ×6 (00:15→20:14)
[2021-12-05] MEDS: PROPOFOL 10MG/ML 100ML 100 ML IV PRN ×7 (02:44→22:33)
[2021-12-05] MEDS: FENTANYL CITRATE/PF 2,500 MCG in SODIUM CHLORIDE 0.9% 200 ML IV PRN ×3 (02:45→22:31)
[2021-12-05] MEDS: BLOOD SUGAR DIAGNOSTIC STRIP TEST SCH ×6 (04:00→20:00)
[2021-12-05] MEDS: MEROPENEM 1,000 MG in SODIUM CHLORIDE 0.9% 100 ML IV SCH ×4 (05:48→22:07)
[2021-12-05] MEDS: DEXT 5%/0.9% NACL 1,000 ML IV SCH ×2 (05:48→17:19)
[2021-12-05 09:34] LABS: BG BASE EXCESS 3.6 mmol/L (-2.0-2.0); BG CARBOXYHEMOGLOBIN 0.1 % (0.5-1.5); BG DEOXYHEMOGLOBIN 1.7 % (0.0-5.0); BG FRACTION INSPIRED OXYGEN 50; BG HCO3 ACT 27.1 mmol/L (22.0-26.0); BG METHEMOGLOBIN 0.3 % (0.0-1.5); BG OXYGEN SATURATION 98.3 % (92.0-98.5); BG OXYHEMOGLOBIN 97.9 % (94.0-97.0); BG PCO2 36.4 mmHg (35.0-45.0); BG PO2 173.4 mmHg (75.0-100.0); BG SAMPLE SITE RIGHT RADIAL; BG TOTAL HEMOGLOBIN 8.4 g/dL (12.0-18.0); BG VENT MODE VENT - AC
[2021-12-05] MEDS: RISPERIDONE 0.5MG TABLET PO SCH (11:52)
[2021-12-05] MEDS: ENOXAPARIN 40MG/0.4ML SYR SUBCUT SCH (14:48)
[2021-12-06] VITALS (69 sets, daily range): BP systolic 108–194; BP diastolic 43–133
[2021-12-06] MEDS: IPRATROPIUM/ALBUTEROL 0.5-3(2.5)MG/3ML NEB HHN SCH ×6 (00:13→20:55)
[2021-12-06] MEDS: BLOOD SUGAR DIAGNOSTIC STRIP TEST SCH ×6 (00:24→20:00)
[2021-12-06] MEDS: PROPOFOL 10MG/ML 100ML 100 ML IV PRN ×3 (00:24→07:02)
[2021-12-06] MEDS: DEXT 5%/0.9% NACL 1,000 ML IV SCH ×3 (01:15→22:14)
[2021-12-06] MEDS: MEROPENEM 1,000 MG in SODIUM CHLORIDE 0.9% 100 ML IV SCH ×3 (06:36→22:14)
[2021-12-06] MEDS: FENTANYL CITRATE/PF 2,500 MCG in SODIUM CHLORIDE 0.9% 200 ML IV PRN (06:42)
[2021-12-06] MEDS: PANTOPRAZOLE SODIUM 40 MG/VIAL IV SCH (08:33)
[2021-12-06] MEDS: RISPERIDONE 0.5MG TABLET PO SCH (08:33)
[2021-12-06 08:51] LABS: BG BASE EXCESS 4.5 mmol/L (-2.0-2.0); BG CARBOXYHEMOGLOBIN 0.3 % (0.5-1.5); BG DEOXYHEMOGLOBIN 2.3 % (0.0-5.0); BG FRACTION INSPIRED OXYGEN 40; BG HCO3 ACT 29.1 mmol/L (22.0-26.0); BG METHEMOGLOBIN 0.1 % (0.0-1.5); BG OXYGEN SATURATION 97.7 % (92.0-98.5); BG OXYHEMOGLOBIN 97.3 % (94.0-97.0); BG PCO2 43.7 mmHg (35.0-45.0); BG PH 7.441 (7.350-7.450); BG PO2 115.4 mmHg (75.0-100.0); BG SAMPLE SITE RIGHT RADIAL; BG TOTAL HEMOGLOBIN 8.7 g/dL (12.0-18.0); BG VENT MODE VENT - AC
[2021-12-06 10:07] LABS: CHLORIDE 111 mEq/L (98-107)
[2021-12-06 10:21] LABS: BASOPHILS % 0.6 % (0.0-2.0); EOSINOPHILS % 5.3 % (0.0-5.0); HEMATOCRIT. 26.4 % (42.0-52.0); HEMOGLOBIN. 8.8 g/dL (14.0-18.0); LYMPHOCYTES % 22.9 % (20.0-50.0); MEAN CORPUSCULAR VOLUME 81.1 fL (80.0-94.0); MEAN PLATELET VOLUME 7.3 fl (7.4-10.4); MONOCYTES % 11.4 % (2.0-8.0); NEUTROPHILS % 59.8 % (40.0-76.0); PLATELET 184 x1000/uL (130-400); RED BLOOD CELL COUNT 3.25 mill/uL (4.7-6.1); RED CELL DISTRIBUTION WIDTH 13.6 % (11.6-14.6)
[2021-12-06] MEDS: LORAZEPAM 2MG/ML CPJ IV PRN ×3 (11:16→22:16)
[2021-12-06] MEDS: HALOPERIDOL LACTATE 5MG/ML VIAL IM PRN ×2 (11:17→19:52)
[2021-12-07] VITALS (30 sets, daily range): BP systolic 115–178; BP diastolic 32–128
[2021-12-07] MEDS: IPRATROPIUM/ALBUTEROL 0.5-3(2.5)MG/3ML NEB HHN SCH ×6 (00:06→20:18)
[2021-12-07] MEDS: LORAZEPAM 2MG/ML CPJ IV PRN ×3 (02:45→23:11)
[2021-12-07] MEDS: BLOOD SUGAR DIAGNOSTIC STRIP TEST SCH ×6 (04:00→20:47)
[2021-12-07 06:29] LABS: CHLORIDE 105 mEq/L (98-107)
[2021-12-07 06:51] LABS: BASOPHILS % 0.5 % (0.0-2.0); EOSINOPHILS % 0.8 % (0.0-5.0); HEMATOCRIT. 35.2 % (42.0-52.0); HEMOGLOBIN. 11.9 g/dL (14.0-18.0); LYMPHOCYTES % 13.3 % (20.0-50.0); MEAN CORPUSCULAR HEMOGLOBIN 26.9 pg (28.0-32.0); MEAN CORPUSCULAR VOLUME 79.7 fL (80.0-94.0); MEAN PLATELET VOLUME 7.7 fl (7.4-10.4); NEUTROPHILS % 76.4 % (40.0-76.0); PLATELET 273 x1000/uL (130-400); RED BLOOD CELL COUNT 4.42 mill/uL (4.7-6.1); RED CELL DISTRIBUTION WIDTH 13.3 % (11.6-14.6)
[2021-12-07] MEDS: DEXT 5%/0.9% NACL 1,000 ML IV SCH ×2 (07:30→18:12)
[2021-12-07] MEDS: RISPERIDONE 0.5MG TABLET PO SCH (09:00)
[2021-12-07] MEDS: PANTOPRAZOLE SODIUM 40 MG/VIAL IV SCH (09:00)
[2021-12-07] MEDS ORDERED: MAGNESIUM 2 G PREMIX 50 ML IV SCH (11:00)
[2021-12-07] MEDS: HALOPERIDOL LACTATE 5MG/ML VIAL IM PRN (18:28)
[2021-12-07] MEDS ORDERED: DIPHENHYDRAMINE 50MG/ML VIAL IV PRN (20:15)
[2021-12-08] VITALS (28 sets, daily range): BP systolic 118–147; BP diastolic 51–104
[2021-12-08] MEDS: IPRATROPIUM/ALBUTEROL 0.5-3(2.5)MG/3ML NEB HHN SCH ×5 (01:44→21:57)
[2021-12-08] MEDS: DEXT 5%/0.9% NACL 1,000 ML IV SCH ×3 (02:45→23:28)
[2021-12-08] MEDS: BLOOD SUGAR DIAGNOSTIC STRIP TEST SCH ×6 (04:00→19:53)
[2021-12-08 06:21] LABS: BASOPHILS % 0.7 % (0.0-2.0); EOSINOPHILS % 1.3 % (0.0-5.0); HEMATOCRIT. 31.4 % (42.0-52.0); HEMOGLOBIN. 10.6 g/dL (14.0-18.0); LYMPHOCYTES % 22.7 % (20.0-50.0); MEAN CORPUSCULAR HEMOGLOBIN 26.9 pg (28.0-32.0); MEAN CORPUSCULAR VOLUME 79.6 fL (80.0-94.0); MEAN PLATELET VOLUME 6.9 fl (7.4-10.4); MONOCYTES % 12.2 % (2.0-8.0); NEUTROPHILS % 63.1 % (40.0-76.0); PLATELET 419 x1000/uL (130-400); RED BLOOD CELL COUNT 3.95 mill/uL (4.7-6.1); RED CELL DISTRIBUTION WIDTH 13.2 % (11.6-14.6)
[2021-12-08 06:29] LABS: CHLORIDE 111 mEq/L (98-107)
[2021-12-08] MEDS: PANTOPRAZOLE SODIUM 40 MG/VIAL IV SCH (09:00)
[2021-12-08] MEDS: RISPERIDONE 0.5MG TABLET PO SCH (09:00)
[2021-12-08] MEDS: LORAZEPAM 2MG/ML CPJ IV PRN ×2 (17:52→22:12)
[2021-12-09] VITALS (23 sets, daily range): BP systolic 95–143; BP diastolic 54–112
[2021-12-09] MEDS: BLOOD SUGAR DIAGNOSTIC STRIP TEST SCH ×6 (00:33→20:00)
[2021-12-09] MEDS: IPRATROPIUM/ALBUTEROL 0.5-3(2.5)MG/3ML NEB HHN SCH ×6 (01:05→20:17)
[2021-12-09] MEDS: LORAZEPAM 2MG/ML CPJ IV PRN (01:53)
[2021-12-09 06:59] LABS: CHLORIDE 110 mEq/L (98-107)
[2021-12-09 07:03] LABS: HEMATOCRIT. 33.1 % (42.0-52.0); HEMOGLOBIN. 11.6 g/dL (14.0-18.0); MEAN CORPUSCULAR HEMOGLOBIN 27.5 pg (28.0-32.0); MEAN CORPUSCULAR VOLUME 78.6 fL (80.0-94.0); MEAN PLATELET VOLUME 7.1 fl (7.4-10.4); PLATELET 460 x1000/uL (130-400); RED BLOOD CELL COUNT 4.21 mill/uL (4.7-6.1); RED CELL DISTRIBUTION WIDTH 13.2 % (11.6-14.6)
[2021-12-09] MEDS: RISPERIDONE 0.5MG TABLET PO SCH (08:33)
[2021-12-09] MEDS: PANTOPRAZOLE SODIUM 40 MG/VIAL IV SCH (08:33)
[2021-12-09] MEDS: DEXT 5%/0.9% NACL 1,000 ML IV SCH (08:34)
[2021-12-09] MEDS ORDERED: POTASSIUM CHLORIDE INJ 40 MEQ in DEXT 5% WATER 250 ML IV ONE (09:00)
[2021-12-09] MEDS: KCL 20MEQ/100ML PREMIX 100 ML IV SCH ×2 (10:36→12:45)
[2021-12-09 12:36] LABS: PLATELET ESTIMATE INCREASED
[2021-12-09] MEDS: ENOXAPARIN 40MG/0.4ML SYR SUBCUT SCH (15:09)
[2021-12-09] MEDS: GUAIFENESIN-DM 200MG-20MG/10ML UDC PO PRN (21:45)
[2021-12-09] MEDS: ACETAMINOPHEN 650MG/20.3ML UDC PO PRN (21:45)
[2021-12-10] VITALS (16 sets, daily range): BP systolic 95–134; BP diastolic 54–98
[2021-12-10] MEDS: IPRATROPIUM/ALBUTEROL 0.5-3(2.5)MG/3ML NEB HHN SCH ×6 (00:05→21:09)
[2021-12-10] MEDS: GUAIFENESIN-DM 200MG-20MG/10ML UDC PO PRN ×3 (02:26→14:10)
[2021-12-10 06:43] LABS: BASOPHILS % 1.3 % (0.0-2.0); EOSINOPHILS % 0.9 % (0.0-5.0); HEMATOCRIT. 30.2 % (42.0-52.0); HEMOGLOBIN. 10.4 g/dL (14.0-18.0); MEAN CORPUSCULAR HEMOGLOBIN 26.8 pg (28.0-32.0); MEAN PLATELET VOLUME 6.5 fl (7.4-10.4); MONOCYTES % 11.5 % (2.0-8.0); NEUTROPHILS % 73.3 % (40.0-76.0); PLATELET 505 x1000/uL (130-400); RED BLOOD CELL COUNT 3.88 mill/uL (4.7-6.1); RED CELL DISTRIBUTION WIDTH 13.6 % (11.6-14.6)
[2021-12-10 06:58] LABS: CHLORIDE 110 mEq/L (98-107)
[2021-12-10] MEDS: BLOOD SUGAR DIAGNOSTIC STRIP TEST SCH ×5 (08:57→20:17)
[2021-12-10] MEDS: RISPERIDONE 0.5MG TABLET PO SCH (09:26)
[2021-12-10] MEDS: PANTOPRAZOLE SODIUM 40 MG/VIAL IV SCH (09:26)
[2021-12-10] MEDS: ENOXAPARIN 40MG/0.4ML SYR SUBCUT SCH (14:10)
[2021-12-10] MEDS ORDERED: IOHEXOL-300 100 ML BOTTLE ONE (15:03)
[2021-12-10] MEDS ORDERED: IOHEXOL-350 100 ML BOTTLE ONE (15:03)
[2021-12-10] MEDS: GUAIFENESIN 600MG ER TABLET PO SCH (20:34)
[2021-12-11] VITALS (13 sets, daily range): BP systolic 98–142; BP diastolic 56–82
[2021-12-11] MEDS: IPRATROPIUM/ALBUTEROL 0.5-3(2.5)MG/3ML NEB HHN SCH ×5 (00:58→20:10)
[2021-12-11] MEDS: BLOOD SUGAR DIAGNOSTIC STRIP TEST SCH ×3 (04:59→07:22)
[2021-12-11] MEDS: PANTOPRAZOLE SODIUM 40 MG/VIAL IV SCH (08:24)
[2021-12-11] MEDS: RISPERIDONE 0.5MG TABLET PO SCH (08:24)
[2021-12-11] MEDS: GUAIFENESIN 600MG ER TABLET PO SCH ×2 (08:24→20:24)
[2021-12-11] MEDS: ENOXAPARIN 40MG/0.4ML SYR SUBCUT SCH (14:13)
[2021-12-11] MEDS: GUAIFENESIN-DM 200MG-20MG/10ML UDC PO PRN (16:00)
[2021-12-12] VITALS (8 sets, daily range): BP systolic 92–141; BP diastolic 53–75
[2021-12-12] MEDS: IPRATROPIUM/ALBUTEROL 0.5-3(2.5)MG/3ML NEB HHN SCH ×3 (02:06→13:06)
[2021-12-12] MEDS: ACETAMINOPHEN 650MG/20.3ML UDC PO PRN (02:54)
[2021-12-12] MEDS: GUAIFENESIN-DM 200MG-20MG/10ML UDC PO PRN (02:54)
[2021-12-12] MEDS: GUAIFENESIN 600MG ER TABLET PO SCH ×2 (08:22→20:00)
[2021-12-12] MEDS: PANTOPRAZOLE SODIUM 40 MG/VIAL IV SCH (08:22)
[2021-12-12] MEDS: RISPERIDONE 0.5MG TABLET PO SCH (08:22)
[2021-12-12] MEDS: ENOXAPARIN 40MG/0.4ML SYR SUBCUT SCH (13:07)
[2021-12-13] MEDS: IPRATROPIUM/ALBUTEROL 0.5-3(2.5)MG/3ML NEB HHN SCH ×3 (08:54→21:37)
[2021-12-13] MEDS: PANTOPRAZOLE SODIUM 40 MG/VIAL IV SCH (09:00)
[2021-12-13] MEDS: GUAIFENESIN 600MG ER TABLET PO SCH ×2 (09:00→20:39)
[2021-12-13] MEDS: RISPERIDONE 0.5MG TABLET PO SCH (10:11)
[2021-12-13 13:00] VITALS: BP 101/59
[2021-12-13 13:19] VITALS: BP 101/59
[2021-12-13] MEDS: ENOXAPARIN 40MG/0.4ML SYR SUBCUT SCH (14:00)
[2021-12-13 20:00] VITALS: BP 114/64
[2021-12-14] MEDS: IPRATROPIUM/ALBUTEROL 0.5-3(2.5)MG/3ML NEB HHN SCH ×2 (02:40→10:26)
[2021-12-14] MEDS: PANTOPRAZOLE SODIUM 40 MG/VIAL IV SCH (09:29)
[2021-12-14] MEDS: RISPERIDONE 0.5MG TABLET PO SCH (09:29)
[2021-12-14] MEDS: GUAIFENESIN 600MG ER TABLET PO SCH ×2 (09:33→21:00)
[2021-12-14] MEDS: ENOXAPARIN 40MG/0.4ML SYR SUBCUT SCH (13:32)
[2021-12-14 20:00] VITALS: BP 91/51
[2021-12-15] VITALS: BP 95/50
[2021-12-15 04:00] VITALS: BP 88/51
[2021-12-15] MEDS: MIDODRINE HCL 5MG TABLET PO SCH ×3 (06:42→16:35)
[2021-12-15] MEDS: IPRATROPIUM/ALBUTEROL 0.5-3(2.5)MG/3ML NEB HHN SCH ×3 (07:43→20:45)
[2021-12-15 08:00] VITALS: BP 96/62
[2021-12-15] MEDS: RISPERIDONE 0.5MG TABLET PO SCH (08:49)
[2021-12-15] MEDS: PANTOPRAZOLE SODIUM 40 MG/VIAL IV SCH (08:49)
[2021-12-15] MEDS: GUAIFENESIN 600MG ER TABLET PO SCH ×2 (08:49→20:09)
[2021-12-15 12:00] VITALS: BP 111/65
[2021-12-15 16:00] VITALS: BP 116/66
[2021-12-15] MEDS: ENOXAPARIN 40MG/0.4ML SYR SUBCUT SCH (16:18)
[2021-12-15 20:00] VITALS: BP 90/55
[2021-12-16] VITALS: BP 101/60
[2021-12-16] MEDS: ACETAMINOPHEN 650MG/20.3ML UDC PO PRN (01:28)
[2021-12-16] MEDS: IPRATROPIUM/ALBUTEROL 0.5-3(2.5)MG/3ML NEB HHN SCH (02:15)
[2021-12-16 04:00] VITALS: BP 93/57
[2021-12-16] MEDS: PANTOPRAZOLE SODIUM 40 MG/VIAL IV SCH (09:37)
[2021-12-16] MEDS: MIDODRINE HCL 5MG TABLET PO SCH (09:38)
[2021-12-16] MEDS: RISPERIDONE 0.5MG TABLET PO SCH (09:38)
[2021-12-16] MEDS: GUAIFENESIN 600MG ER TABLET PO SCH (10:47)
== END 2021-12-16 11:55 | disposition left against medical advice (07) | DRG 720 ==
LOC: ER 12:01 → EDBD 12:51 → CVICU 12:51 → EDBEDREQTM 12:52 → EDBEDREQ 12:52 → ENRESERV 13:06 → 5EST 12-10 08:55 → 6EST 12-13 13:18
PROVIDERS: ADMIT Hospitalist; ATTEND Hospitalist
PROC: 5A1955Z Respiratory Ventilation, Greater than 96 Consecutive Hours (ICD-10-PCS; principal; 2021-11-28)
PROC: 5A12012 Performance of Cardiac Output, Single, Manual (ICD-10-PCS; 2021-11-28)
PROC: 0BH17EZ Insertion of Endotracheal Airway into Trachea, Via Natural or Artificial Opening (ICD-10-PCS; 2021-11-28)
PROC: 05HM33Z Insertion of Infusion Device into Right Internal Jugular Vein, Percutaneous Approach (ICD-10-PCS; 2021-11-29)
PROC: B543ZZA Ultrasonography of Right Jugular Veins, Guidance (ICD-10-PCS; 2021-11-29)
PROC: 4A10X4Z Monitoring of Central Nervous Electrical Activity, External Approach (ICD-10-PCS; 2021-12-05)
DX: A41.9 Sepsis, unspecified organism (principal); I46.9 Cardiac arrest, cause unspecified; R65.21 Severe sepsis with septic shock; J69.0 Pneumonitis due to inhalation of food and vomit; G93.40 Encephalopathy, unspecified; J96.01 Acute respiratory failure with hypoxia; J96.02 Acute respiratory failure with hypercapnia; E44.0 Moderate protein-calorie malnutrition; E87.2 Acidosis; E44.1 Mild protein-calorie malnutrition; I50.20 Unspecified systolic (congestive) heart failure; T43.621A Poisoning by amphetamines, accidental (unintentional), initial encounter; T43.641A Poisoning by ecstasy, accidental (unintentional), initial encounter; I42.9 Cardiomyopathy, unspecified; Z20.822 Contact with and (suspected) exposure to COVID-19; E16.2 Hypoglycemia, unspecified; R74.01 Elevation of levels of liver transaminase levels; E78.5 Hyperlipidemia, unspecified; S91.302A Unspecified open wound, left foot, initial encounter; S91.301A Unspecified open wound, right foot, initial encounter; I11.0 Hypertensive heart disease with heart failure; X58.XXXA Exposure to other specified factors, initial encounter; Z68.28 Body mass index [BMI] 28.0-28.9, adult; Y93.89 Activity, other specified; Y92.89 Other specified places as the place of occurrence of the external cause; Y99.8 Other external cause status; Z59.00 Homelessness unspecified
CPT/HCPCS: 36415; 36600; 70551; 71045; 71250; 71275; 74176; 76937; 80048; 80053; 80061; 80305; 80307; 80320; 80329; 81003; 82150; 82330; 82375; 82533; 82550; 82553; 82746; 82805; 82962; 83605; 83735; 83880; 84100; 84145; 84425; 84443; 84478; 84484; 85025; 85379; 86850; 86900; 87070; 87106; 87426; 92610; 93005; 93306; 93880; 93970; 94002; 94003; 94640; 95816; 97162; 97166; 97530; 97535; 99291; C1725; C9113; J0282; J0456; J0696; J1200; J1630; J1650; J1815; J2060; J2185; J2250; J2543; J2704; J3010; J3475; J3480; J3490; J7030; J7042; J7050; J7060; Q9967; G0480